=== PATIENT | female | born 1970 | race Caucasian/White ===

== ENCOUNTER 2020-08-10 04:45 | Emergency (ER) | payer OTHER, SELFPAY ==
--- NOTE | ~2020-08-10 | CT_ITS ---
EXAMINATION: CT abdomen pelvis wo con DATE: 08/10/2020 05:26 INDICATION: Left flank pain TECHNIQUE: Computed tomography (CT) of the abdomen and pelvis was performed without intravenous contr ast. The dose-length product was 809.59 mGy-cm. Automated exposure control and iterative reconstructi on technique were employed. COMPARISON: None. FINDINGS: Lung bases are unremarkable. No significant pleural or pericardial effusion. Heart size nor mal. No significant vascular abnormality. There is mildly enlarged retroperitoneal lymph nodes in the para-aortic location, largest measuring approximately 1.9 cm. There is a 6 mm left UPJ stone with mo derate hydronephrosis and perinephric edema. The right kidney is atrophic and contains cyst of the up per pole, largest measuring 3 cm. Gallbladder not identified, likely surgically absent. There are sam nges of gastric bypass surgery. Nonobstructive bowel gas pattern. Moderate colonic fecal loading. The re is mixed lucency and sclerosis of the femoral heads,, suspicious for avascular necrosis, left grea ter than right. Moderate lumbar spondylosis with levoscoliosis. There are calcified granulomas of the liver and spleen. IMPRESSION: 1. Left UPJ stone measuring 6 mm with moderate hydronephrosis and perinephric edema. 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 3: Nonspecific retroperitoneal lymphadenopathy which may be reactive, although other considerations s uch as metastatic disease and lymphoma are not excluded. Correlate for history of malignancy. Reviewed, dictated and finalized at location B. IMPRESSION: 1. Left UPJ stone measuring 6 mm with moderate hydronephrosis and perinephric e lanie. 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 3: Nonspecific retroperitoneal lymphadenopathy which may be reactive, although other considerations such as metastatic disease and lymphoma are not excluded. Correlate for history of malignancy.
[2020-08-10 04:45] VITALS: RESP 20; TEMP 36.8; O2SAT 98
--- NOTE | 2020-08-10 05:18 | ED.FEMALEGU ---
HPI - Female Genitourinary General Chief complaint: Urogenital-Female Stated complaint: Abdominal pain Source: patient Mode of arrival: ambulatory History of Present Illness HPI Narrative: this is a 50-year-old female presents after she woke up early this morning with some left flank pain radiating into her left groin area with no hematuria does have some mild dysuria with no fever chills no shortness of breath no chest pain rates her pain about 8/10 with some nausea with no episodes of vomiting no fever chills. The patient has no known history of kidney stones, has a history of hypertension. MD elicited complaint: dysuria and flank pain Onset (ago): hour(s) Severity: moderate Female Urogenital Radiation: L Flank Severity scale (1-10): 8 Quality of pain: dull Consistency: intermittent Vaginal discharge: none Vaginal bleeding: none Urinary symptoms: Dysuria Related Data Home Medications Medication Instructions Recorded Confirmed duloxetine 120 mg PO DAILY 08/10/20 08/10/20 furosemide 20 mg PO DAILY 08/10/20 08/10/20 losartan 50 mg PO DAILY 08/10/20 08/10/20 omeprazole 20 mg PO DAILY 08/10/20 08/10/20 Allergies Allergy/AdvReac Type Severity Reaction Status Date / Time clindamycin Allergy Unknown Hives Verified 03/16/19 10:34 codeine Allergy Unknown Verified 03/16/19 10:34 hydrocodone Allergy Unknown Verified 03/16/19 10:34 meperidine Allergy Unknown Verified 03/16/19 10:34 quinapril Allergy Unknown Hives Verified 03/16/19 10:34 Review of Systems Review of Systems: All systems reviewed & are unremarkable except as noted in HPI and below PMFSH Past Medical History Medical History HTN (hypertension) Family History Family History Father Asthma Family history of chronic obstructive pulmonary disease Family history of throat cancer Grandparent Family history of rheumatoid arthritis Cerebrovascular accident Family history of Parkinson's disease Family history of dementia Family history of congestive heart failure Mother Family history of cardiac disorder Family history of chronic obstructive pulmonary disease Exam Const: General: no acute distress and alert Orientation/consciousness: patient oriented x3 HENMT: Head: normal to inspection Eyes: Conjunctivae: conjunctivae normal Pupils: Equal, round and reactive pupils present Direct Ophthalmoscopy: no photophobia Neck: Neck: normal visual inspection Chest: Chest palpation & inspection: normal inspection of the chest Resp: Effort & Inspection: normal respiratory effort Auscultation: clear to auscultation bilaterally Cardio: Rate: regular rate Rhythm: regular rhythm GI: GI Palp: Yes Soft to palpation and Yes Tenderness to palpation present (GI) : General: Yes CVA tenderness ( left flank) on the left Urinary Catheter: Urinary Catheter: patent and draining Back/Spine/Pelvis: Back: CVA tenderness Skin: General skin exam: normal color Rashes: no rashes Neuro: General: patient oriented x3, moves all extremities, no meningeal signs and no focal motor deficits Extrem: General: normal to inspection and no pedal edema Psych: Mental Status: mental status grossly normal Affect: normal affect Thought content: Yes Normal thought content present Course Course Emergency Course: patient received IV fluids and IV Zofran along with IV Toradol and symptoms have improved reviewed CT scan and Klucka with patient. Patient has a 5mm stone at the UPJ with mild left hydronephrosis. Vital Signs Vital signs: Vital Signs Temperature 36.8 C 08/10/20 04:45 Respiratory Rate 20 08/10/20 04:45 Pulse Oximetry 98 08/10/20 04:45 Temperature 36.8 C 08/10/20 04:45 Respiratory Rate 20 08/10/20 04:45 Pulse Oximetry 98 08/10/20 04:45 MDM - Female Genitourinary Lab Data Result diagrams: 08/10/20 05:38 0
[2020-08-10] MEDS: ONDANSETRON INJ 4 MG/2 ML VIAL IV PUSH (05:20)
[2020-08-10] MEDS: SODIUM CHLORIDE 0.9% IV 1,000 ML 999 ML IV CONT (05:29)
[2020-08-10] MEDS: KETOROLAC 30 MG/ML VIAL (*BKC) IV PUSH (05:29)
[2020-08-10 05:48] LABS: Basophils Absolute Auto 0.05 K/mm3 (0.00-0.10); Basophils Percent Auto 0.4 % (0.0-1.0); Eosinophils Absolute Auto 0.06 K/mm3 (0.02-0.50); Eosinophils Percent Auto 0.5 % (1.0-6.0); Hematocrit 37.3 % (35.0-49.0); Hemoglobin 12.2 g/dL (12.0-15.0); Immature Granulocyte Absolute 0.04 K/mm3 (0.00-0.00); Immature Granulocyte Percent A 0.3 % (0.0-0.0); Lymphocytes Absolute Auto 1.25 K/mm3 (1.10-4.50); Lymphocytes Percent Auto 10.4 % (18.0-42.0); Mean Corpuscular HGB Conc 32.7 g/dL (32.0-36.0); Mean Corpuscular Hemoglobin 29.5 pg (27.0-31.0); Mean Corpuscular Volume 90.3 fL (78.0-102.0); Mean Platelet Volume 10.1 fl (9.2-11.8); Monocytes Absolute Auto 0.54 K/mm3 (0.10-0.90); Monocytes Percent Auto 4.5 % (2.0-11.0); Neutrophils Absolute Auto 10.1 K/mm3 (1.7-7.2); Neutrophils Percent Auto 83.9 % (50.0-70.0); Platelet Count Result 181 K/mm3 (150-420); Red Blood Count 4.13 M/mm3 (4.20-5.40); Red Cell Distribution Width 12.9 % (11.6-14.4)
[2020-08-10 05:57] LABS: Appearance Urine Clear (Clear); Bilirubin Urine Negative (Negative); Color Urine Yellow (Yellow); Glucose Urine UA Negative (Negative); Ketones Urine Negative (Negative); Leukocyte Esterase Ur Trace LEU/UL (Negative); Nitrate Urine Negative (Negative); Protein Urine Trace (Negative); Specific Grav Ur >= 1.030 (1.010-1.020); Urobilinogen Urine 0.2 mg/dL (0.2-1.0); pH Urine 5.5 (5.0-8.0)
[2020-08-10 06:06] LABS: Add Urine Microscopic? YES; Blood Urine Trace-Intact (Negative); Squamous Epithelial Cell Urine Few /hpf (Few)
[2020-08-10 06:07] LABS: Mucus Urine Moderate /lpf
[2020-08-10 06:08] LABS: Alanine Aminotransferase 24 U/L (14-59); Albumin Level 2.9 g/dL (3.4-5.0); Alkaline Phosphatase 92 U/L (46-116); Anion Gap 7 mmol/L (8-16); Aspartate Amino Transferase 16 U/L (15-37); Bilirubin,Total 0.4 mg/dL (0.00-1.00); Blood Urea Nitrogen 18 mg/dL (7-18); Calcium 8.7 mg/dL (8.5-10.1); Carbon Dioxide 27 mmol/L (21-32); Chloride 105 mmol/L (98-108); Estimated CRCL calculation 47 ml/min; Estimated Glomerular Filt Rate 38; Glucose 139 mg/dL (70-99); Lipase 51 U/L (73-393); Osmolality Calculated 291 mOsm/kg (285-295); Potassium 3.7 mmol/L (3.5-5.1); Sodium 139 mmol/L (136-145); Total Protein 6.6 g/dL (6.4-8.2)
[2020-08-10 06:52] VITALS: BP 137/67; PULSE 89; RESP 20; TEMP 37.1; O2SAT 99
== END 2020-08-10 06:57 | disposition home or self-care (01) ==
PROVIDERS: Emergency Provider Emergency Medicine
DX: N20.1 Calculus of ureter (principal)
CPT/HCPCS: 36415; 74176; 80053; 81001; 83605; 83690; 85025; 96361; 96365; 96375; 99283; 99284; J0696; J1885; J2405; J7030

== ENCOUNTER 2021-04-02 16:19 | Emergency (ER) | payer OTHER, SELFPAY ==
--- NOTE | ~2021-04-02 | CT_ITS ---
EXAMINATION: CT abdomen pelvis wo con DATE: 04/02/2021 17:41 INDICATION: Left-sided abdomen pain. History of kidney stones. Previous gastric bypass surgery. TECHNIQUE: Computed tomography (CT) of the abdomen and pelvis was performed without intravenous contr ast. The dose-length product was 520.44 mGy-cm. Automated exposure control and iterative reconstructi on technique were employed. COMPARISON: CT dated 08/10/2020. FINDINGS: Lung bases are unremarkable. Heart size normal. No significant pleural or pericardial effus ion. There are calcified granulomas of the liver and spleen. There are surgical changes of gastric by pass. Normal appendix. The pancreas, adrenal glands are unremarkable. There are right renal cysts the largest at the upper p ole measuring 4 cm. There is a 9 mm left renal stone in the renal pelvis. No hydronephrosis. Nonobstr uctive bowel gas pattern. No abnormal pelvic masses or fluid collections. 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 Moderate lumbar spondylosis with levoscoliosis. Nonspecific retroperitoneal ly mph nodes are stable or mildly decreased compared with prior study. IMPRESSION: 1. Nonobstructing left nephrolithiasis. 2: No significant change to nonspecific retroperitoneal lymphadenopathy. Reviewed, dictated and finalized at location A. STANT ART DIRECTOR
[2021-04-02 16:38] VITALS: BP 134/78; PULSE 83; RESP 18; TEMP 35.9; O2SAT 100
--- NOTE | 2021-04-02 17:01 | ED.ABDPAIN ---
HPI - Abdominal Pain General Chief Complaint: Urogenital-Female Stated Complaint: thinks kidney stones, peeing blood Time Seen by Provider: 04/02/21 16:21 Source: patient and RN notes reviewed Mode of arrival: ambulatory Limitations: no limitations History of Present Illness MD elicited complaint: flank pain Pertinent past history: kidney stones and past UTI Onset (ago): hour(s) (2) Pain Consistency: constant and colicky Location: L flank, suprapubic and other (left CVA deep pain.) Severity: moderate Pain scale (0-10): 6 Quality: cramping, aching and dull Migration to: no migration Exacerbating factors: nothing Relieving factors: nothing Associated symptoms: dysuria and hematuria Related Data Home Medications Medication Instructions Recorded Confirmed omeprazole 20 mg PO DAILY 08/10/20 08/10/20 clonazepam [Klonopin] 0.5 mg PO DAILY 04/02/21 04/02/21 duloxetine [Cymbalta] 60 mg PO DAILY 04/02/21 04/02/21 topiramate [Topamax] 100 mg PO DAILY 04/02/21 04/02/21 Allergies Allergy/AdvReac Type Severity Reaction Status Date / Time clindamycin Allergy Unknown Hives Verified 03/16/19 10:34 codeine Allergy Unknown Verified 03/16/19 10:34 hydrocodone Allergy Unknown Verified 03/16/19 10:34 meperidine Allergy Unknown Verified 03/16/19 10:34 quinapril Allergy Unknown Hives Verified 03/16/19 10:34 Review of Systems Review of Systems: All systems reviewed & are unremarkable except as noted in HPI and below Genitourinary: Genitourinary: Reports hematuria PMFSH Past Medical History Medical History HTN (hypertension) Urolithiasis Family History Family History Father Asthma Family history of chronic obstructive pulmonary disease Family history of throat cancer Grandparent Family history of rheumatoid arthritis Cerebrovascular accident Family history of Parkinson's disease Family history of dementia Family history of congestive heart failure Mother Family history of cardiac disorder Family history of chronic obstructive pulmonary disease Exam Const: General: no acute distress and alert Nutritional Appearance: well nourished Orientation/consciousness: patient oriented x3 Limitations: no limitations HENMT: Head: normal to inspection Ears: external ears normal and TM's normal bilaterally General nose exam: Normal external nose present and Normal nares present Mouth: Yes lip normal and Yes moist mucous membranes Teeth and gingiva: dentition normal Throat: posterior oropharynx normal Eyes: Conjunctivae: conjunctivae normal Pupils: Equal, round and reactive pupils present EOM: EOMs intact bilaterally Neck: Neck: normal visual inspection and no lymphadenopathy Chest: Chest palpation & inspection: normal inspection of the chest Resp: Effort & Inspection: normal respiratory effort Auscultation: clear to auscultation bilaterally Cardio: Rate: regular rate Rhythm: regular rhythm GI: GI Palp: Yes Soft to palpation and Yes Tenderness to palpation present (GI) (minimal left LQ abdomen to suprapubic tenderness) : General: Yes CVA tenderness (minimal left) on the left Back/Spine/Pelvis: Back: CVA tenderness Skin: General skin exam: normal color Rashes: no rashes Neuro: General: patient oriented x3, moves all extremities, no meningeal signs, no focal motor deficits and CN's II-XI intact bilaterally Extrem: General: normal to inspection and no pedal edema Psych: Appearance: grossly normal and well kempt Mental Status: mental status grossly normal Affect: normal affect Attitude: cooperative Thought content: Yes Normal thought content present Course Course Emergency Course: Pt was stable in the ED with less pain. Labs and imaging findings were d/w the pt who expressed understanding of what was said. For home with early Urologist review. Reevaluation(s) Reevaluation #1: VSS with less fl
[2021-04-02 17:15] LABS: Basophils Absolute Auto 0.06 K/mm3 (0.00-0.10); Basophils Percent Auto 0.9 % (0.0-1.0); Eosinophils Absolute Auto 0.15 K/mm3 (0.02-0.50); Eosinophils Percent Auto 2.2 % (1.0-6.0); Hemoglobin 12.3 g/dL (12.0-15.0); Immature Granulocyte Absolute 0.01 K/mm3 (0.00-0.00); Immature Granulocyte Percent A 0.1 % (0.0-0.0); Lymphocytes Absolute Auto 2.96 K/mm3 (1.10-4.50); Lymphocytes Percent Auto 43.6 % (18.0-42.0); Mean Corpuscular HGB Conc 32.4 g/dL (32.0-36.0); Mean Corpuscular Hemoglobin 30.1 pg (27.0-31.0); Mean Corpuscular Volume 92.9 fL (78.0-102.0); Mean Platelet Volume 10.1 fl (9.2-11.8); Monocytes Absolute Auto 0.48 K/mm3 (0.10-0.90); Monocytes Percent Auto 7.1 % (2.0-11.0); Neutrophils Absolute Auto 3.1 K/mm3 (1.7-7.2); Neutrophils Percent Auto 46.1 % (50.0-70.0); Platelet Count Result 166 K/mm3 (150-420); Red Blood Count 4.09 M/mm3 (4.20-5.40); White Blood Count 6.8 K/mm3 (4.8-10.8)
[2021-04-02] MEDS: KETOROLAC (*BKC) 60 MG/2 ML VIAL IM (17:25)
[2021-04-02] MEDS: SODIUM CHLORIDE 0.9% IV 500 ML 999 ML IV CONT (17:25)
[2021-04-02 17:34] LABS: Appearance Urine Turbid (Clear); Bilirubin Urine Negative (Negative); Blood Urine 3+ (Negative); Glucose Urine UA Negative (Negative); Ketones Urine Negative (Negative); Leukocyte Esterase Ur Negative (Negative); Nitrate Urine Negative (Negative); Protein Urine 2+ (Negative); Specific Grav Ur >= 1.030 (1.010-1.020); pH Urine 5.5 (5.0-8.0)
[2021-04-02 17:37] LABS: Add Urine Microscopic? YES; Color Urine Dark Brown (Yellow); RBC Urine >75 /hpf (0-2); Squamous Epithelial Cell Urine Rare /hpf (Few); WBC Urine None seen /hpf (0-3)
[2021-04-02 17:38] LABS: Bacteria Urine 1+ /hpf
[2021-04-02 18:14] VITALS: BP 129/81; PULSE 62; RESP 20; O2SAT 100
[2021-04-02] MEDS: PROMETHAZINE HCL 25 MG/ML AMPUL IM (18:21)
--- NOTE | 2021-04-02 18:27 | PC.NURSE ---
Pt resting comfortably. Pt provided a blanket. Pt c/o nausea 30 min prior. RN informed ERP who ordered meds see JUL. RN administered nausea medications. Pt aware waiting for results from ERP. Pt repositioned on stretcher for comfort.
[2021-04-02 19:29] VITALS: BP 139/87; PULSE 64; RESP 20; O2SAT 100
--- NOTE | 2021-04-06 07:40 | PC.NURSE ---
NS stopped around 1900 pt received 500ml NS
== END 2021-04-02 19:30 | disposition home or self-care (01) ==
PROVIDERS: Emergency Provider Emergency Medicine; PCP Nurse Practitioner Family
DX: N20.0 Calculus of kidney (principal)
CPT/HCPCS: 36415; 74176; 81001; 85025; 96360; 96361; 96372; 99283; 99284; J1885; J2550; J7040

== ENCOUNTER 2021-04-23 11:28 | Emergency (ER) | payer OTHER, SELFPAY ==
--- NOTE | ~2021-04-23 | CT_ITS ---
EXAMINATION: CT brain wo con DATE: 04/23/2021 14:04 INDICATION: Headache. TECHNIQUE: Computed tomography (CT) of the head was performed without intravenous contrast. The mA wa s adjusted according to patient size. Iterative reconstruction technique was employed. The dose-lengt h product was 605.33 mGy-cm. COMPARISON: Head CT 07/25/2006 FINDINGS: There is no intracranial hemorrhage, acute infarction, or abnormal intracranial mass lesion . The ventricles are normal in size. The paranasal sinuses are clear. The mastoid air cells are jessica l. The orbits are normal. IMPRESSION: 1. Normal brain. Reviewed, dictated and finalized at location A. IESEL PLANT MANAGER IMPRESSION: 1. Normal brain.
--- NOTE | ~2021-04-23 | XR_ITS ---
EXAMINATION: XR chest 2V EXAM DATE: 04/23/2021 14:03 INDICATION: chest pain, HTN. TECHNIQUE: Frontal and lateral projections of the chest obtained and reviewed. There is no prior jennifer dy for comparison. FINDINGS: The lungs are clear. There are no pleural effusions. The cardiomediastinal silhouette is within normal limits. There is no pneumothorax suspected. Old right 5th rib fracture. IMPRESSION: No acute cardiopulmonary findings. Reviewed, dictated and finalized at location B. PHONE STATION INSTALLER
[2021-04-23 12:28] VITALS: BP 188/105; PULSE 72; RESP 18; TEMP 36.4; O2SAT 99
[2021-04-23 13:06] VITALS: BP 162/102; PULSE 72; RESP 24; O2SAT 100
--- NOTE | 2021-04-23 13:17 | ECG_ITS ---
Measurements Intervals [place] Rate: 64 P: 78 UT: 178 QRS: 67 QRSD: 106 T: 53 QT: 393 QTc: 405 Interpretive Statements SINUS RHYTHM INCOMPLETE RIGHT BUNDLE BRANCH BLOCK BASELINE ARTIFACT- I, II, III, AVR, AVL, AVF, V1-V2 BORDERLINE ECG Electronically Signed On 04-23-2021 14:55:11 PAROLE DIRECTOR by Mane Mckeon D.O.
[2021-04-23] MEDS: ASPIRIN 81 MG CHEWABLE TABLET 324 MG PO (13:25)
--- NOTE | 2021-04-23 13:32 | ED.CHESTPAIN ---
HPI - Chest Pain General Chief Complaint: Unspecified Stated Complaint: elevated blood pressure/Dr told to come Time Seen by Provider: 04/23/21 13:32 Source: patient Mode of arrival: ambulatory Limitations: no limitations History of Present Illness HPI narrative: 51-year-old woman with a history hypertension for having had bariatric surgery comes in today complaining of fullness in her neck that prompted her to check her blood pressure today. Her home BP was 230/120 today. Primary care doctor told her to come to the emergency department. She complains of a severe headache but not unlike her prior headaches. She states other than some brief sharp twinges in her chest she has had no other chest pain, shortness of breath, lightheadedness, nausea, vomiting, sweats or exercise intolerance. She denies recent illness, fever, cough, congestion, sore throat, stiff neck, and is fully immunized for COVID. MD complaint: chest pain Onset (ago): week(s) (2) Timing of current episode: episodic Prior episodes: No Onset: during rest Pain location: left chest Pain radiation: none Severity: mild Quality: sharp ( Twinges ) Relieving factors: nothing Exacerbating factors: nothing Treatment prior to arrival: none Risk Factors Coronary artery disease risk factors: hypertension Related Data On Oral Contraceptives: No Home Medications Medication Instructions Recorded Confirmed omeprazole 20 mg PO DAILY 08/10/20 04/23/21 clonazepam [Klonopin] 0.5 mg PO DAILY 04/02/21 04/23/21 duloxetine [Cymbalta] 60 mg PO DAILY 04/02/21 04/23/21 topiramate [Topamax] 100 mg PO DAILY 04/02/21 04/23/21 Adults Multivitamin DAILY 04/23/21 FeroSul 325 mg PO DAILY 04/23/21 04/23/21 Vitamin B-12 1,000 mg PO DAILY 04/23/21 04/23/21 Allergies Allergy/AdvReac Type Severity Reaction Status Date / Time clindamycin Allergy Unknown Hives Verified 03/16/19 10:34 codeine Allergy Unknown Verified 03/16/19 10:34 hydrocodone Allergy Unknown Verified 03/16/19 10:34 meperidine Allergy Unknown Verified 03/16/19 10:34 quinapril Allergy Unknown Hives Verified 03/16/19 10:34 Review of Systems Review of Systems: All systems reviewed & are unremarkable except as noted in HPI and below Constitutional: Constitutional: Denies chills, Denies fever(s) and Denies weakness Eyes: Eyes: Denies change in vision and Denies photophobia ENT: Denies nasal congestion and Denies sore throat Cardiovascular: Cardiovascular: Reports chest pain and Denies radiating jaw, neck or arm pain Respiratory: Respiratory: Denies cough, Denies dyspnea and Denies wheezing Gastrointestinal: Gastrointestinal: Denies abdominal pain, Denies nausea and Denies vomiting Genitourinary: Genitourinary: Denies hematuria, Denies nocturia and Denies dysuria Musculoskeletal: Musculoskeletal: Denies back pain, Denies arthralgias and Denies joint swelling Integumentary/Breasts: Skin/Breast: Denies pruritus, Denies erythema and Denies rash Neurologic: Denies vertigo, Denies dizziness, Denies syncope and Reports headache(s) Hematologic/Lymphatic: Hematologic/Lymphatic: Denies easy bleeding and Denies easy bruising Allergic/Immunologic: Allergic/Immunologic: Denies lip swelling and Denies throat swelling PMFSH Past Medical History Medical History (Updated 04/23/21 @ 15:15 by Derrek Brady MD) HTN (hypertension) Urolithiasis Surgical History Surgical History (Updated 04/23/21 @ 15:09 by Derrek Brady MD) History of hysterectomy Family History Family History Father Asthma Family history of chronic obstructive pulmonary disease Family history of throat cancer Grandparent Family history of rheumatoid arthritis Cerebrovascular accident Family history of Parkinson's disease Family history of dementia Family history of congestive heart failure Mother Family history of cardiac disorder Family history of chronic obstructive pulmo
[2021-04-23 13:41] LABS: Basophils Absolute Auto 0.08 K/mm3 (0.00-0.10); Eosinophils Absolute Auto 0.21 K/mm3 (0.02-0.50); Eosinophils Percent Auto 2.5 % (1.0-6.0); Hematocrit 35.5 % (35.0-49.0); Hemoglobin 12.3 g/dL (12.0-15.0); Immature Granulocyte Absolute 0.02 K/mm3 (0.00-0.00); Immature Granulocyte Percent A 0.2 % (0.0-0.0); Lymphocytes Percent Auto 33.5 % (18.0-42.0); Mean Corpuscular HGB Conc 34.6 g/dL (32.0-36.0); Mean Corpuscular Hemoglobin 29.9 pg (27.0-31.0); Mean Corpuscular Volume 86.4 fL (78.0-102.0); Monocytes Absolute Auto 0.54 K/mm3 (0.10-0.90); Monocytes Percent Auto 6.5 % (2.0-11.0); Neutrophils Absolute Auto 4.7 K/mm3 (1.7-7.2); Neutrophils Percent Auto 56.3 % (50.0-70.0); Platelet Count Result 226 K/mm3 (150-420); Red Blood Count 4.11 M/mm3 (4.20-5.40); Red Cell Distribution Width 11.8 % (11.6-14.4); White Blood Count 8.4 K/mm3 (4.8-10.8)
[2021-04-23 14:05] LABS: Alanine Aminotransferase 18 U/L (14-59); Albumin Level 3.1 g/dL (3.4-5.0); Alkaline Phosphatase 82 U/L (46-116); Anion Gap 9 mmol/L (8-16); Aspartate Amino Transferase 14 U/L (15-37); Bilirubin,Total 0.3 mg/dL (0.00-1.00); Blood Urea Nitrogen 28 mg/dL (7-18); Calcium 8.7 mg/dL (8.5-10.1); Carbon Dioxide 27 mmol/L (21-32); Chloride 106 mmol/L (98-108); Estimated CRCL calculation 33 ml/min; Estimated Glomerular Filt Rate 30; Glucose 93 mg/dL (70-99); Osmolality Calculated 299 mOsm/kg (285-295); Potassium 3.7 mmol/L (3.5-5.1); Sodium 142 mmol/L (136-145); Total Protein 6.7 g/dL (6.4-8.2)
[2021-04-23 14:07] LABS: NT Pro B Type Natriuretic Pept 719 pg/mL (0-125)
[2021-04-23 14:11] LABS: Add Urine Microscopic? NO; Appearance Urine Clear (Clear); Bilirubin Urine Negative (Negative); Blood Urine Negative (Negative); Color Urine Yellow (Yellow); Glucose Urine UA Negative (Negative); Ketones Urine Negative (Negative); Leukocyte Esterase Ur Negative LEU/UL (Negative); Nitrate Urine Negative (Negative); Protein Urine Negative (Negative); Urobilinogen Urine 0.2 mg/dL (0.2-1.0)
[2021-04-23 14:17] VITALS: BP 128/93; PULSE 65; RESP 24; O2SAT 100
[2021-04-23 15:38] VITALS: BP 149/76; PULSE 66; RESP 16; O2SAT 100
[2021-04-23 15:48] VITALS: PULSE 81
[2021-04-23] MEDS: carvediloL 3.125 MG TABLET PO (15:48)
== END 2021-04-23 15:49 | disposition home or self-care (01) ==
PROVIDERS: Emergency Provider Emergency Medicine; PCP Nurse Practitioner Family
DX: I10 Essential (primary) hypertension (principal); N17.9 Acute kidney failure, unspecified; R07.9 Chest pain, unspecified
CPT/HCPCS: 36415; 70450; 71046; 80053; 81003; 83880; 84484; 85025; 93005; 99283; 99284; A9270